=== PATIENT | male | born 1960 ===

== ENCOUNTER → 2022-10-13 | Day surgery (SDC) | payer OTHER ==
[~2022-10-13] VITALS: Ht 172.7 cm; Wt 84.4 kg
[~2022-10-13] MED LIST: MIRTAZAPINE30 M1 PO; PERCOCET 5-3251 EACH PO; SYNTHROID50 MCG PO; TEMAZE PO; TENORMIN50 M1 PO
== END | disposition home or self-care (01) ==
LOC: ADM 10-08 08:15 → CIR.AMB 08:15
PROVIDERS: ATTEND Surgery
DX: N52.01 Erectile dysfunction due to arterial insufficiency (principal); Z20.822 Contact with and (suspected) exposure to COVID-19; I10 Essential (primary) hypertension; E78.5 Hyperlipidemia, unspecified
CPT/HCPCS: 54405; C1813